=== PATIENT | male | born 1965 | race Caucasian/White ===

== ENCOUNTER 2017-07-20 06:58 | Day surgery (SDC) | payer BC ==
[~2017-07-20] VITALS: Ht 177.8 cm; Wt 102.2 kg
[2017-07-20] MEDS ORDERED: IODIXANOL 320MG/ML 100ML BTL IV ONE (07:18)
[2017-07-20] MEDS ORDERED: LIDOCAINE HCL 2 %PF INJ 10ML AMP IJ ONE (07:18)
[2017-07-20] MEDS ORDERED: fentaNYL CITRATE 100 MCG/2 ML VL ONE (08:26)
[2017-07-20] MEDS ORDERED: ANGIOMAX 250 MG VIAL IV ONE (08:26)
[2017-07-20] MEDS ORDERED: MIDAZOLAM HCL 1MG/1ML-2 ML VIAL ONE (08:27)
[2017-07-20] MEDS ORDERED: SODIUM CHL 0.9% 0 ML ONE (08:27)
[2017-07-20] MEDS ORDERED: VERAPAMIL 2.5MG/ML INJ 2ML VIAL IV ONE (08:38)
[2017-07-20] MEDS ORDERED: HEPARIN SODIUM (PORCINE) 5000 UNITS/ML 1ML VIAL ONE (08:51)
== END 2017-07-20 11:00 | disposition home or self-care (01) ==
LOC: CATH 06:58
PROVIDERS: ATTEND Internal Medicine
DX: R94.39 Abnormal result of other cardiovascular function study (principal); E66.9 Obesity, unspecified; Z68.32 Body mass index [BMI] 32.0-32.9, adult; I10 Essential (primary) hypertension; E78.5 Hyperlipidemia, unspecified; I25.2 Old myocardial infarction
CPT/HCPCS: 93458; C1769; C1894; J1644; J2250; J3010; J7030; Q9967; 99152